=== PATIENT | male | born 1995 | race Two or more races ===

== ENCOUNTER 2017-04-10 09:45 | Emergency (ER) | payer OTHER ==
[2017-04-10 09:53] VITALS: RESP 16; TEMP 97.5
--- NOTE | 2017-04-10 10:47 | EDPHY ---
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 He noted that the package was damaged and most likely an animal had tried to get into. He opened the package which contained a plastic container full of chocolate chip cookies. He ate cookies. Mother was concerned that he may be exposed to rabies. He is up- to-date on his immunizations. Modifying Factors: Comment: ROS: Eyes: No blurred vision Respiratory: No shortness of breath, no cough Cardiovascular: No chest pain Gastrointestinal: No nausea, no vomiting no diarrhea Genitourinary: No dysuria Extremities: No myalgias Neurologic: No weakness, no numbness Skin: No rashes Hematologic: No bruising, no bleeding MEDICAL/SURGICAL HISTORY: Generally healthy. Denies any surgical history. Social History: College student. Smoking Status: Current every day smoker Physical Exam: CONSTITUTIONAL: Young adult white male, extremely well-appearing, awake and alert, no obvious distress HEENT: Atraumatic and normocephalic, PERRL, EOMI. Tympanic membranes clear. Oropharynx clear, no exudate and moist pink mucosa. Airway patent. No lymphadenopathy. No meningismus. Cardiovascular: Normal S1/S2, regular rate, regular rhythm, without murmur rub or gallop. PULMONARY/CHEST: Symmetrical and nontender. Clear to auscultation bilaterally Good air movement. No accessory muscle usage. ABDOMEN: Soft, nondistended, nontender, no rebound, no guarding, no peritoneal signs, no masses or organomegaly. No CVAT. EXTREMITIES: 2/2 pulses, no deformities, no clubbing, no cyanosis or edema. NEUROLOGICAL: no focal neuro deficits. GCS 15. SKIN: Warm and dry, no erythema. no rash. Good capillary refill. Constitutional: Initial Vital Signs Temperature (C) 36.4 C 04/10/17 09:50 Heart Rate 65 04/10/17 09:50 Respiratory Rate 16 04/10/17 09:50 Blood Pressure 109/75 04/10/17 09:50 O2 Sat (%) 96 04/10/17 09:50 O2 Delivery Mode Room Air Allergies/Adverse Reactions: No Known Allergies Allergy (Unverified 04/10/17 09:50) Home Medications: Medication Instructions Recorded Claritin 04/10/17 Medical Decision Making ED Course/Re-evaluation: Discussed ways to contract rabies. Reassurance provided. Departure - Departure Disposition: Home, Routine, Self-Care Clinical Impression: Observation and evaluation for suspected conditions not found Condition: Good Instructions: Rabies (ED) Additional Instructions: If at any time there is concern for rabies exposure, may contact Infectious Disease Clinic for an appointment. Referrals: Kierra Redding MD [Medical Doctor] - As per Instructions
[2017-04-10 14:34] VITALS: BP 110/80; PULSE 72; O2SAT 98
== END 2017-04-10 10:59 | disposition home or self-care (01) ==
DX: Z20.3 Contact with and (suspected) exposure to rabies (principal); F17.200 Nicotine dependence, unspecified, uncomplicated

== ENCOUNTER 2017-04-16 11:27 | Emergency (ER) | payer OTHER ==
[2017-04-16 11:32] VITALS: O2SAT 96
--- NOTE | 2017-04-16 13:06 | EDPHY ---
H & P Stated Complaint: racoon exsposure 1 wk ago Time Seen by Provider: 04/16/17 13:06 HPI/ROS: CHIEF COMPLAINT: Infectious disease clinic recommends rabies vaccine HISTORY OF PRESENT ILLNESS: The patient is referred to the emergency department by the Infect[facility] Disease Clinic for rabies vaccine and immunoglobulin. He apparently was exposed to food which had been also contaminated by raccoons. The patient denies any direct exposure to or bite from a raccoon. He denies significant medical problems. He denies additional acute complaints. REVIEW OF SYSTEMS: A comprehensive 10 point review of systems is otherwise negative aside from elements mentioned in the history of present illness. Source: Patient Exam Limitations: No limitations - Personal History Current Tetanus/Diphtheria Vaccine: Yes Current Tetanus Diphtheria and Acellular Pertussis (TDAP): Yes - Medical/Surgical History Hx Asthma: No Hx Chronic Respiratory Disease: No Hx Diabetes: No Hx Cardiac Disease: No Hx Renal Disease: No Hx Cirrhosis: No Hx Alcoholism: No Hx HIV/AIDS: No Hx Splenectomy or Spleen Trauma: No Other PMH: choly - Social History Smoking Status: Current every day smoker - Physical Exam Exam: General Appearance: Alert, no distress Skin: Warm and dry, no rashes Musculoskeletal: Neck is supple nontender Extremities: symmetrical, full range of motion Constitutional: Initial Vital Signs Temperature (C) 36.4 C 04/16/17 11:30 Heart Rate 66 04/16/17 11:30 Respiratory Rate 16 04/16/17 11:30 Blood Pressure 111/74 04/16/17 11:30 O2 Sat (%) 96 04/16/17 11:30 O2 Delivery Mode Room Air Allergies/Adverse Reactions: No Known Allergies Allergy (Unverified 04/10/17 09:50) Home Medications: Medication Instructions Recorded Claritin 04/10/17 Medical Decision Making ED Course/Re-evaluation: The patient presents the ED for rabies vaccination and immunoglobulin. The patient will need additional rabies vaccines in 3 (Apr 19), 7(Apr 23) and 14 ( Apr 30) days. [facility] receive [facility] through [facility] or the ED. Departure - Departure Disposition: Home, Routine, Self-Care Clinical Impression: Need for rabies vaccination Condition: Good Instructions: Rabies Vaccine (ED) Additional Instructions: You will need additional rabies vaccination on Apr 19, Apr 23 and Apr 30. You can contact the [facility] to arrange these vaccinations an outpatient (lower cost alternative). You can also received these vaccinations in the emergency department. Referrals: [facility] (ED,. [Edm Groups for Call Sched] - As per Instructions
[2017-04-16] MEDS ORDERED: RABIES IMMUNE GLOBULIN 300 UNIT/2 ML VIAL IM ONE (13:28)
[2017-04-16] MEDS ORDERED: RABIES VACC, HUMAN DIPLOID/PF 2.5 UNIT VIAL (RABAVERT) IM ONE (13:29)
[2017-04-16 14:24] VITALS: BP 115/78; PULSE 71; RESP 18; TEMP 97
== END 2017-04-16 14:22 | disposition home or self-care (01) ==
DX: Z20.3 Contact with and (suspected) exposure to rabies (principal); F17.200 Nicotine dependence, unspecified, uncomplicated; Z23 Encounter for immunization

== ENCOUNTER 2018-05-17 20:11 | Emergency (ER) | payer OTHER ==
[2018-05-17 20:19] VITALS: BP 115/70
--- NOTE | 2018-05-17 20:27 | EDPHY ---
H & P Stated Complaint: R upper leg pain Time Seen by Provider: 05/17/18 20:26 HPI/ROS: HPI: This is a 22-year-old male who presents with Chief Complaint: Right upper leg pain Location: Right quadriceps Quality: Injury Duration: Prior to arrival Signs and Symptoms: No bleeding, no radiation, no numbness, no weakness, no tingling, no incontinence, + decreased range of motion, no swelling, + pain, no fever Timing: Acute Severity: Moderate to severe Context: Patient was playing football when all a sudden he felt a tearing ripping sensation in his right upper anterior leg with decreased range of motion. He reports that he is unable to lift his leg her engage his right leg. He is concerned that he may have tore something. He denies paresthesias, weakness, radiation. Modifying Factors: None Comment: ROS: A comprehensive 10 system review of systems is otherwise negative aside from elements mentioned in the history of present illness. MEDICAL/SURGICAL/SOCIAL HISTORY: Medical history: Seasonal allergies Surgical history: Cholecystectomy Social history: Smoker. CONSTITUTIONAL: Polite and cooperative young adult white male, awake and alert , no obvious distress HEENT: Atraumatic and normocephalic. NECK: supple EXTREMITIES: 2/2 pulses, strength 5/5, KNEE: no effusion, no medial and lateral joint line tenderness, full extension to 180, flexion to 120. No pain with varus and valgus exam. No pain with anterior drawer or posterior drawer test. Extensor mechanism not intact. Unable to perform right straight leg raise. no deformities, no clubbing, no cyanosis or edema. NEUROLOGICAL: no focal neuro deficits. GCS 15. Light touch sensation intact. SKIN: Warm and dry, no erythema. no rash. Good capillary refill. Source: Patient Exam Limitations: No limitations - Personal History Current Tetanus/Diphtheria Vaccine: Yes - Medical/Surgical History Hx Asthma: No Hx Chronic Respiratory Disease: No Hx Diabetes: No Hx Cardiac Disease: No Hx Renal Disease: No Hx Cirrhosis: No Hx Alcoholism: No Hx HIV/AIDS: No Hx Splenectomy or Spleen Trauma: No Other PMH: choly - Social History Smoking Status: Current some day smoker Constitutional: Initial Vital Signs Temperature (C) 36.8 C 05/17/18 20:16 Heart Rate 84 05/17/18 20:16 Respiratory Rate 18 05/17/18 20:16 Blood Pressure 115/70 05/17/18 20:16 O2 Sat (%) 96 05/17/18 20:16 O2 Delivery Mode Room Air Allergies/Adverse Reactions: No Known Allergies Allergy (Unverified 05/17/18 20:19) Home Medications: Medication Instructions Recorded Claritin 04/10/17 oxyCODONE/APAP 5/325 [Percocet 1 - 2 tab PO Q4H PRN #10 tab 05/17/18 5/325 (*)] Medical Decision Making Procedures: Procedure: Splint placement. A right knee immobilizer was applied by the Emergency Room infrastructure technician. After application of the splint I returned and re-examined the patient. The splint was adequately immobilizing the joint and distal to the splint the patient's circulation and sensation was intact. ED Course/Re-evaluation: Musculoskeletal ultrasound not available at night. Suspect quadriceps strain verses tear versus rupture Placed in knee immobilizer, crutches, orthopedic follow-up Given Percocet and Flexeril in the emergency room Prescription for Percocet provided. No signs of neurovascular compromise/tenting of skin/compartment syndrome/ extremities and joints examined above and below area of concern and are neurovascularly intact. This patient was seen under the supervision of my secondary supervising physician. I evaluated care for this patient independently. Discussed this patient with Dr. Reyes. Differential Diagnosis: Differential diagnosis includes but is not limited to patellar strain, patella rupture, quadriceps rupture. Departure - Departure Disposition: Home, Routine, Self-Care Clinical Impression: Strain of right quadriceps muscle Qualifiers: Encounter type: initial encounter Qualified Code(s): S76.111A - Strain of right quadriceps muscle, fascia and tendon, initial encounter Condition: Good Instructions: Tendon Repair (DC), Knee Immobilizer (ED), Crutch Instructions ( ED) Additional Instructions: Wear the knee immobilizer while out of bed until pain free. Use crutches to aid ambulation. Start with toe-touch weight-bearing status. Keep the dressing dry and in place for 48 hours. After 48 hours, you may remove the dressing; wash the site daily with mild soap and water; then pat dry. Take Tylenol 650 mg every 4 hours and/or Ibuprofen 600 mg every 8 hours with food as needed for pain. Use Percocet every 6 hours as needed for severe/break through pain. Do not use Tylenol and Percocet concomitantly. Apply ice for 30 minutes at a time; 2-3 times per day for the next 1-2 days. Follow up with Orthopedics in 3-5 days days at which time they will evaluate and recommend with you if conservative management versus further imaging versus surgery is indicated. Referrals: Ludin Beltran MD [Medical Doctor] - Prescriptions: oxyCODONE/APAP 5/325 [Percocet 5/325 (*)] 1 - 2 tab PO Q4H PRN #10 tab PRN Reason: Pain, Severe
[2018-05-17] MEDS ORDERED: OXYCODONE/APAP 5/325 TAB PO ONE (20:48)
[2018-05-17] MEDS ORDERED: CYCLOBENZAPRINE 10 MG TAB PO ONE (20:48)
== END 2018-05-17 21:08 | disposition home or self-care (01) ==
DX: S76.111A Strain of right quadriceps muscle, fascia and tendon, initial encounter (principal); F17.200 Nicotine dependence, unspecified, uncomplicated; Y93.61 Activity, american tackle football; Y92.9 Unspecified place or not applicable; Y99.9 Unspecified external cause status
CPT/HCPCS: L1830

== ENCOUNTER → 2018-05-26 | Outpatient (CLI) | payer OTHER | LOC: FIMAGING 18:48 | PROVIDERS: ATTEND Physician Assistant | DX: S76.311A Strain of muscle, fascia and tendon of the posterior muscle group at thigh level, right thigh, initial encounter (principal); S76.111A Strain of right quadriceps muscle, fascia and tendon, initial encounter; S73.191A Other sprain of right hip, initial encounter ==